=== PATIENT | male | born 1995 | race Caucasian/White ===

== ENCOUNTER 2021-12-17 21:51 | Emergency (ER) | payer BC, OTHER ==
[2021-12-17] MEDS ORDERED: Ketorolac Tromethamine 30 MG/ML VIAL ONE (22:46)
[2021-12-17] MEDS ORDERED: Diazepam 5 MG TAB ONE (22:46)
== END 2021-12-17 23:46 | disposition home or self-care (01) ==
LOC: CSHERS 21:51
DX: M54.50 Low back pain, unspecified (principal)
CPT/HCPCS: 96372; J1885